=== PATIENT | male | born 1935 | race Caucasian/White ===

== ENCOUNTER 2019-05-18 10:02 | Outpatient (CLI) | payer MEDICARE ==
--- NOTE | 2019-05-18 10:29 | RAD ---
XR Chest Pa Lat STANDARD HISTORY: Hyponatremia, leukocytosis. COMPARISON: None FINDINGS: There are changes of median sternotomy. The heart size is normal. The lungs are well expand ed without focal areas of consolidation, pneumothorax or pleural effusions. Degenerative changes present in the spine IMPRESSION: No radiographic evidence of acute cardiopulmonary process.
== END 2019-05-18 10:03 | disposition home or self-care (01) ==
LOC: BICRAD 10:02
PROVIDERS: ATTEND Family Medicine
DX: E87.1 Hypo-osmolality and hyponatremia (principal); D72.829 Elevated white blood cell count, unspecified
CPT/HCPCS: 71046

== ENCOUNTER 2021-05-30 11:03 | Inpatient (IN) | payer MEDICARE ==
[2021-05-30 11:43] LABS: #Neutrophils 10.7 thou/uL (1.40-6.50); %Basophils 0.2 % (0.0-1.0); %Eosinophils 0.1 % (0.0-10.0); %Lymphocytes 7.6 % (21.0-51.0); %Monocytes 8.1 % (0.0-10.0); %Neutrophils 84.1 % (42.0-75.0); Hemoglobin 13.3 g/dL (14.0-18.0); Mean Corpuscular HGB CONC 33.9 g/dL (32.0-36.0); Mean Corpuscular Hemoglobin 31.7 pg (27.0-31.0); Mean Corpuscular Volume 93.7 fL (78.0-98.0); Mean Platelet Volume 7.3 fL (7.4-10.4); Platelet Count 201 thou/uL (130-400); White Blood Cell (WBC) Count 12.8 thou/uL (4.8-10.8)
[2021-05-30 12:16] LABS: ALT (SGPT) 19 U/L (8-55); AST (SGOT) 28 U/L (5-34); Albumin 3.9 g/dL (3.4-4.8); Alkaline Phosphatase 74 U/L (40-110); Anion Gap 10 mmol/L (10-20); BUN (Urea Nitrogen) 12 mg/dL (8.4-25.7); Bilirubin, Total 0.7 mg/dL (0.2-1.2); Calc. Creatinine Clearance 0 mL/min (70-130); Calcium 8.7 mg/dL (7.8-10.44); Carbon Dioxide 24 mmol/L (23-31); Chloride 94 mmol/L (98-107); Globulin 2.1 g/dL (2.4-3.5); Glucose 147 mg/dL (83-110); Potassium 4.2 mmol/L (3.5-5.1); Sodium 124 mmol/L (136-145)
[2021-05-30 12:44] LABS: CKMB 0.9 ng/mL (0-6.6)
[2021-05-30] MEDS ORDERED: Acetaminophen 500 MG TAB ONE (13:04)
[2021-05-30 13:38] LABS: Bacteria/HPF 3+ HPF (None Seen); Bilirubin Negative (Negative); Blood, Urine Negative (Negative); Clarity Turbid (Clear); Glucose, Urine (Dipstick) Normal (Negative); Ketone, Urine Negative (Negative); Leukocyte 500 Leu/uL (Negative); Nitrite Negative (Negative); Protein, Urine (Dipstick) 200 mg/dL (Neg-Trace); Specific Gravity, Urine 1.013 (1.002-1.036); Squamous Epithelial 0-3 HPF (0-3); Urobilinogen Normal mg/dL (Less than 2); WBC/HPF 21-50 HPF (0-3); pH, Urine 6.5 (5.0-9.0)
[2021-05-30] MEDS ORDERED: Aspirin Chewable 81 MG TAB ONE (13:45)
[2021-05-30] MEDS ORDERED: cefTRIAXone\\ROCEPHIN 1 GM VIAL ONE (13:55)
[2021-05-30 14:45] LABS: Lactic Acid 0.7 mmol/L (0.5-2.2)
[2021-05-30 16:09] LABS: Troponin I 0.088 ng/mL (< 0.028)
[2021-05-30] MEDS ORDERED: Ondansetron PF 4 MG/2 ML Vial IVP PRN (17:39)
[2021-05-30] MEDS ORDERED: Nitroglycerin 0.4 MG TAB (25 Tab Bottle) SL PRN (17:43)
[2021-05-30 19:00] LABS: Troponin I 0.058 ng/mL (< 0.028)
[2021-05-30 19:03] LABS: Anion Gap 10 mmol/L (10-20); BUN (Urea Nitrogen) 12 mg/dL (8.4-25.7); Calc. Creatinine Clearance 0 mL/min (70-130); Calcium 8.1 mg/dL (7.8-10.44); Carbon Dioxide 24 mmol/L (23-31); Chloride 94 mmol/L (98-107); Glucose 147 mg/dL (83-110); Potassium 3.2 mmol/L (3.5-5.1); Sodium 125 mmol/L (136-145)
[2021-05-30] MEDS ORDERED: Furosemide 40 MG/4 ML VIAL SLOW IVP SCH ×2 (20:00→23:00)
[2021-05-30] MEDS: Atorvastatin Calcium 40 MG TAB PO SCH (22:58)
[2021-05-31 00:20] LABS: Creatinine, Urine 34.22 mg/dL (63-166)
[2021-05-31] MEDS: Calcium Carbonate 500 MG ChewTAB PO PRN (01:27)
[2021-05-31 03:57] VITALS: BMI 27.7
[2021-05-31 04:38] LABS: #Monocytes 0.8 thou/uL (0.11-0.59); #Neutrophils 6.3 thou/uL (1.40-6.50); %Eosinophils 0.2 % (0.0-10.0); %Monocytes 8.5 % (0.0-10.0); %Neutrophils 69.3 % (42.0-75.0); Hemoglobin 13.3 g/dL (14.0-18.0); Mean Corpuscular HGB CONC 34.2 g/dL (32.0-36.0); Mean Corpuscular Hemoglobin 31.9 pg (27.0-31.0); Mean Corpuscular Volume 93.3 fL (78.0-98.0); Mean Platelet Volume 6.9 fL (7.4-10.4); Platelet Count 162 thou/uL (130-400); RBC Distribution Width 11.8 % (11.5-14.5); Red Blood Cell (RBC) Count 4.16 mill/uL (4.70-6.10); White Blood Cell (WBC) Count 9.1 thou/uL (4.8-10.8)
[2021-05-31 04:46] LABS: Hemoglobin A1c 5.1 % (4.0-6.0)
[2021-05-31 04:58] LABS: Anion Gap 11 mmol/L (10-20); BUN (Urea Nitrogen) 11 mg/dL (8.4-25.7); Calc. Creatinine Clearance 74 mL/min (70-130); Calcium 8.4 mg/dL (7.8-10.44); Carbon Dioxide 24 mmol/L (23-31); Chloride 94 mmol/L (98-107); Glucose 97 mg/dL (83-110); Potassium 3.3 mmol/L (3.5-5.1); Sodium 126 mmol/L (136-145)
[2021-05-31] MEDS ORDERED: Enoxaparin Sodium 40 MG/0.4 ML SYRINGE SC SCH (09:00)
[2021-05-31] MEDS ORDERED: Aspirin Chewable 81 MG TAB PO SCH (09:00)
[2021-05-31] MEDS ORDERED: Metoprolol Tartrate 50 MG TAB PO SCH (09:00)
[2021-05-31 09:10] LABS: Sodium 128 mmol/L (136-145)
[2021-05-31] MEDS: Polyethylene Glycol 3350 17 GM Packet PO SCH (09:44)
[2021-05-31] MEDS: Aspirin 325 mg Enteric Coated Tablet PO SCH (09:44)
[2021-05-31] MEDS: Multivitamin W/ Minerals 1 TAB PO SCH (09:44)
[2021-05-31] MEDS: Tamsulosin HCl 0.4 MG CAP PO SCH (09:44)
[2021-05-31 13:14] LABS: SARS-CoV-2 PCR by NAA DETECTED (NotDetected)
[2021-05-31] MEDS ORDERED: Vancomycin 1 GM in Premix Bag 1 BAG IVPB SCH (14:00)
[2021-05-31] MEDS: cefTRIAXone\\ROCEPHIN 1 GM in Sodium Chloride 0.9% 100 ML IVPB SCH (14:39)
[2021-05-31] MEDS: Sodium Chloride 0.9% 10 ML ONE ×2 (14:39→21:35)
[2021-05-31] MEDS ORDERED: Docusate 100 MG CAP PO PRN (15:08)
[2021-05-31] MEDS ORDERED: cloNIDine 0.1 MG TAB PO PRN (15:08)
[2021-05-31] MEDS ORDERED: Ascorbic Acid 500 mg Chewable Tablet PO SCH (18:00)
[2021-05-31] MEDS ORDERED: Albuterol Sulfate 2.5 mg/3 ml Neb NEB SCH (19:00)
[2021-05-31] MEDS ORDERED: CLINDAMYCIN 1% TOP SCH (21:00)
[2021-05-31] MEDS ORDERED: Cholecalciferol 1,000 UNITS (25 MCG) TAB PO SCH (21:00)
[2021-05-31] MEDS: Albuterol 200 PUFF (6.7GM INHALER) INH SCH ×2 (21:34)
[2021-05-31] MEDS: Atorvastatin Calcium 40 MG TAB PO SCH (21:35)
[2021-05-31] MEDS: Enoxaparin Sodium 40 MG/0.4 ML SYRINGE SC SCH (21:35)
[2021-05-31] MEDS: Metoprolol Tartrate 50 MG TAB PO SCH (21:36)
[2021-05-31] MEDS: Amlodipine 5 MG TAB PO SCH (21:36)
[2021-05-31] MEDS: Acetaminophen 325 MG TAB PO PRN (21:36)
[2021-05-31 21:56] LABS: Sodium 125 mmol/L (136-145)
[2021-06-01 05:49] LABS: Band 7 % (5-11); Hemoglobin 12.7 g/dL (14.0-18.0); Hypochromia SLIGHT = 6-15 cells (100X) (0-5/hpf); Lymphocytes 29 % (21-51); MDiff Complete? YES; Mean Corpuscular HGB CONC 34.5 g/dL (32.0-36.0); Mean Corpuscular Hemoglobin 31.7 pg (27.0-31.0); Mean Platelet Volume 7.3 fL (7.4-10.4); Monocytes 7 % (0-10); Neutrophil 49 % (42-75); Platelet Count 141 thou/uL (130-400); Platelet Morphology Comment Appears Adequate; RBC Distribution Width 11.8 % (11.5-14.5); Reactive Lymphocytes 8 % (0-10); Red Blood Cell (RBC) Count 3.99 mill/uL (4.70-6.10); White Blood Cell (WBC) Count 6.3 thou/uL (4.8-10.8)
[2021-06-01 05:52] LABS: Anion Gap 11 mmol/L (10-20); BUN (Urea Nitrogen) 9 mg/dL (8.4-25.7); Calc. Creatinine Clearance 66 mL/min (70-130); Carbon Dioxide 25 mmol/L (23-31); Chloride 92 mmol/L (98-107); Glucose 97 mg/dL (83-110); Magnesium 1.9 mg/dL (1.6-2.6); Potassium 3.7 mmol/L (3.5-5.1); Sodium 124 mmol/L (136-145)
[2021-06-01] MEDS: Albuterol 200 PUFF (6.7GM INHALER) INH SCH ×3 (06:09→19:30)
[2021-06-01] MEDS: Ascorbic Acid 500 mg Chewable Tablet PO SCH (07:53)
[2021-06-01] MEDS: Aspirin 325 mg Enteric Coated Tablet PO SCH (07:54)
[2021-06-01] MEDS: Cholecalciferol 1,000 UNITS (25 MCG) TAB PO SCH (07:54)
[2021-06-01] MEDS: Enoxaparin Sodium 40 MG/0.4 ML SYRINGE SC SCH ×2 (07:55→20:23)
[2021-06-01] MEDS: Metoprolol Tartrate 50 MG TAB PO SCH ×3 (07:56→20:23)
[2021-06-01] MEDS: Multivitamin W/ Minerals 1 TAB PO SCH (07:57)
[2021-06-01] MEDS: Polyethylene Glycol 3350 17 GM Packet PO SCH (07:57)
[2021-06-01] MEDS: Zinc Sulfate 220 MG CAP PO SCH (07:58)
[2021-06-01] MEDS: Tamsulosin HCl 0.4 MG CAP PO SCH (07:58)
[2021-06-01] MEDS: Fluticasone Propionate Nasal Spray 16 gm Bottle NASAL SCH (08:35)
[2021-06-01 10:33] LABS: Sodium 125 mmol/L (136-145)
[2021-06-01] MEDS ORDERED: cefTRIAXone\\ROCEPHIN 1 GM in Sodium Chloride 0.9% 100 ML IVPB SCH (15:15)
[2021-06-01] MEDS: Vancomycin 1 GM in Premix Bag 1 BAG IVPB SCH (16:24)
[2021-06-01] MEDS: cefTRIAXone\\ROCEPHIN 1 GM in Sodium Chloride 0.9% 100 ML IVPB SCH (18:36)
[2021-06-01] MEDS: Atorvastatin Calcium 40 MG TAB PO SCH (20:23)
[2021-06-01] MEDS: Amlodipine 5 MG TAB PO SCH (20:23)
[2021-06-01] MEDS: Acetaminophen 325 MG TAB PO PRN (20:24)
[2021-06-01 22:37] LABS: Sodium 124 mmol/L (136-145)
[2021-06-02] MEDS: Albuterol 200 PUFF (6.7GM INHALER) INH SCH ×4 (01:47→19:48)
[2021-06-02] MEDS: Vancomycin 1 GM in Premix Bag 1 BAG IVPB SCH (03:41)
[2021-06-02] MEDS: Acetaminophen 325 MG TAB PO PRN ×3 (03:54→21:53)
[2021-06-02 05:44] LABS: Anion Gap 9 mmol/L (10-20); BUN (Urea Nitrogen) 9 mg/dL (8.4-25.7); Calc. Creatinine Clearance 77 mL/min (70-130); Calcium 7.8 mg/dL (7.8-10.44); Carbon Dioxide 25 mmol/L (23-31); Chloride 92 mmol/L (98-107); Glucose 116 mg/dL (83-110); Sodium 123 mmol/L (136-145)
[2021-06-02 05:52] LABS: Potassium 2.9 mmol/L (3.5-5.1)
[2021-06-02] MEDS ORDERED: Electrolyte Replacement Protocol 1 EACH FS PRN (06:00)
[2021-06-02 06:20] LABS: Magnesium 1.8 mg/dL (1.6-2.6)
[2021-06-02] MEDS: Potassium Chloride 20 MEQ in Premix Bag 1 BAG IVPB SCH ×5 (06:24→14:18)
[2021-06-02] MEDS ORDERED: Magnesium 2 GM/50 ML 2 GM in Premix Bag 1 BAG IVPB SCH (06:30)
[2021-06-02] MEDS: Ascorbic Acid 500 mg Chewable Tablet PO SCH (08:46)
[2021-06-02] MEDS: Cholecalciferol 1,000 UNITS (25 MCG) TAB PO SCH (08:47)
[2021-06-02] MEDS: Aspirin 325 mg Enteric Coated Tablet PO SCH (08:47)
[2021-06-02] MEDS: Enoxaparin Sodium 40 MG/0.4 ML SYRINGE SC SCH ×2 (08:48→19:48)
[2021-06-02] MEDS: Fluticasone Propionate Nasal Spray 16 gm Bottle NASAL SCH (08:48)
[2021-06-02] MEDS: Metoprolol Tartrate 50 MG TAB PO SCH ×3 (08:49→19:48)
[2021-06-02] MEDS: Polyethylene Glycol 3350 17 GM Packet PO SCH (08:49)
[2021-06-02] MEDS: Multivitamin W/ Minerals 1 TAB PO SCH (08:49)
[2021-06-02] MEDS: Tamsulosin HCl 0.4 MG CAP PO SCH (08:50)
[2021-06-02] MEDS: Zinc Sulfate 220 MG CAP PO SCH (08:50)
[2021-06-02] MEDS: Amiodarone 450 MG in Dextrose 5% in Water 250 ML IVPB SCH ×3 (12:19→22:25)
[2021-06-02] MEDS ORDERED: cefTRIAXone\\ROCEPHIN 2 GM in Sodium Chloride 0.9% 100 ML IVPB SCH (14:00)
[2021-06-02 16:36] LABS: Anion Gap 10 mmol/L (10-20); BUN (Urea Nitrogen) 13 mg/dL (8.4-25.7); Calc. Creatinine Clearance 64 mL/min (70-130); Carbon Dioxide 23 mmol/L (23-31); Chloride 93 mmol/L (98-107); Glucose 130 mg/dL (83-110); Magnesium 2.3 mg/dL (1.6-2.6); Potassium 3.7 mmol/L (3.5-5.1); Sodium 122 mmol/L (136-145)
[2021-06-02] MEDS: Amlodipine 5 MG TAB PO SCH (19:47)
[2021-06-02] MEDS: Atorvastatin Calcium 40 MG TAB PO SCH (19:47)
[2021-06-02] MEDS: Amoxicillin/Potassium Clav 875 MG TAB PO SCH (19:47)
[2021-06-02 22:33] LABS: Anion Gap 10 mmol/L (10-20); BUN (Urea Nitrogen) 12 mg/dL (8.4-25.7); Calc. Creatinine Clearance 66 mL/min (70-130); Calcium 8.3 mg/dL (7.8-10.44); Carbon Dioxide 26 mmol/L (23-31); Chloride 94 mmol/L (98-107); Glucose 107 mg/dL (83-110); Sodium 126 mmol/L (136-145)
[2021-06-03] MEDS: Albuterol 200 PUFF (6.7GM INHALER) INH SCH ×4 (00:51→17:44)
[2021-06-03 05:52] LABS: Anion Gap 8 mmol/L (10-20); BUN (Urea Nitrogen) 10 mg/dL (8.4-25.7); Calc. Creatinine Clearance 68 mL/min (70-130); Calcium 7.9 mg/dL (7.8-10.44); Carbon Dioxide 26 mmol/L (23-31); Chloride 94 mmol/L (98-107); Glucose 104 mg/dL (83-110); Magnesium 2.2 mg/dL (1.6-2.6); Potassium 3.4 mmol/L (3.5-5.1); Sodium 125 mmol/L (136-145)
[2021-06-03] MEDS: Acetaminophen 325 MG TAB PO PRN ×2 (06:04→21:36)
[2021-06-03] MEDS ORDERED: Potassium Chloride 20 MEQ TAB PO SCH (06:30)
[2021-06-03] MEDS: Ascorbic Acid 500 mg Chewable Tablet PO SCH (08:35)
[2021-06-03] MEDS: Enoxaparin Sodium 40 MG/0.4 ML SYRINGE SC SCH ×2 (08:36→21:37)
[2021-06-03] MEDS: Amoxicillin/Potassium Clav 875 MG TAB PO SCH ×2 (08:36→21:36)
[2021-06-03] MEDS: Metoprolol Tartrate 50 MG TAB PO SCH ×3 (08:36→21:36)
[2021-06-03] MEDS: Multivitamin W/ Minerals 1 TAB PO SCH (08:36)
[2021-06-03] MEDS: Zinc Sulfate 220 MG CAP PO SCH (08:36)
[2021-06-03] MEDS: Cholecalciferol 1,000 UNITS (25 MCG) TAB PO SCH (08:36)
[2021-06-03] MEDS: Aspirin 325 mg Enteric Coated Tablet PO SCH (08:36)
[2021-06-03] MEDS: Tamsulosin HCl 0.4 MG CAP PO SCH (08:36)
[2021-06-03] MEDS: Polyethylene Glycol 3350 17 GM Packet PO SCH (08:37)
[2021-06-03] MEDS: Fluticasone Propionate Nasal Spray 16 gm Bottle NASAL SCH ×2 (08:38→17:45)
[2021-06-03] MEDS: Amiodarone 200 MG TAB PO SCH ×2 (15:10→21:36)
[2021-06-03] MEDS: Amiodarone 450 MG in Dextrose 5% in Water 250 ML IVPB SCH (15:11)
[2021-06-03] MEDS: Calcium Carbonate 500 MG ChewTAB PO PRN (17:44)
[2021-06-03] MEDS ORDERED: Fluticasone Propionate Nasal Spray 16 gm Bottle NASAL SCH (21:00)
[2021-06-03] MEDS: Atorvastatin Calcium 40 MG TAB PO SCH (21:36)
[2021-06-03] MEDS: Amlodipine 5 MG TAB PO SCH (21:36)
[2021-06-04] MEDS: Albuterol 200 PUFF (6.7GM INHALER) INH SCH ×3 (01:38→12:57)
[2021-06-04 05:37] LABS: #Lymphocytes 1.4 thou/uL (1.20-3.40); #Monocytes 0.6 thou/uL (0.11-0.59); #Neutrophils 2.9 thou/uL (1.40-6.50); %Basophils 0.3 % (0.0-1.0); %Eosinophils 0.2 % (0.0-10.0); %Lymphocytes 28.5 % (21.0-51.0); %Monocytes 11.4 % (0.0-10.0); %Neutrophils 59.7 % (42.0-75.0); Hemoglobin 11.4 g/dL (14.0-18.0); Mean Corpuscular HGB CONC 34.7 g/dL (32.0-36.0); Mean Corpuscular Volume 92.1 fL (78.0-98.0); Mean Platelet Volume 7.4 fL (7.4-10.4); Platelet Count 159 thou/uL (130-400); RBC Distribution Width 11.8 % (11.5-14.5); Red Blood Cell (RBC) Count 3.57 mill/uL (4.70-6.10); White Blood Cell (WBC) Count 4.9 thou/uL (4.8-10.8)
[2021-06-04 05:57] LABS: Anion Gap 10 mmol/L (10-20); BUN (Urea Nitrogen) 11 mg/dL (8.4-25.7); Calc. Creatinine Clearance 61 mL/min (70-130); Carbon Dioxide 21 mmol/L (23-31); Chloride 98 mmol/L (98-107); Glucose 101 mg/dL (83-110); Magnesium 2.1 mg/dL (1.6-2.6); Potassium 3.3 mmol/L (3.5-5.1); Sodium 126 mmol/L (136-145)
[2021-06-04] MEDS: Amoxicillin/Potassium Clav 875 MG TAB PO SCH (09:21)
[2021-06-04] MEDS: Enoxaparin Sodium 40 MG/0.4 ML SYRINGE SC SCH (09:21)
[2021-06-04] MEDS: Aspirin 325 mg Enteric Coated Tablet PO SCH (09:21)
[2021-06-04] MEDS: Metoprolol Tartrate 50 MG TAB PO SCH ×2 (09:22→16:06)
[2021-06-04] MEDS: Ascorbic Acid 500 mg Chewable Tablet PO SCH (09:22)
[2021-06-04] MEDS: Zinc Sulfate 220 MG CAP PO SCH (09:22)
[2021-06-04] MEDS: Tamsulosin HCl 0.4 MG CAP PO SCH (09:22)
[2021-06-04] MEDS: Multivitamin W/ Minerals 1 TAB PO SCH (09:22)
[2021-06-04] MEDS: Polyethylene Glycol 3350 17 GM Packet PO SCH (09:22)
[2021-06-04] MEDS: Cholecalciferol 1,000 UNITS (25 MCG) TAB PO SCH (09:22)
[2021-06-04] MEDS: Amiodarone 200 MG TAB PO SCH ×2 (09:22→16:06)
[2021-06-04 12:55] VITALS: BP 153/74; TEMP 100
[2021-06-04 13:39] LABS: Anion Gap 12 mmol/L (10-20); BUN (Urea Nitrogen) 11 mg/dL (8.4-25.7); Calc. Creatinine Clearance 57 mL/min (70-130); Carbon Dioxide 23 mmol/L (23-31); Chloride 98 mmol/L (98-107); Potassium 3.5 mmol/L (3.5-5.1); Sodium 129 mmol/L (136-145)
[2021-06-04 13:40] LABS: Calcium 8.4 mg/dL (7.8-10.44); Glucose 133 mg/dL (83-110)
[2021-06-04] MEDS ORDERED: Potassium Chloride 20 MEQ TAB PO SCH (13:45)
[2021-06-04] MEDS ORDERED: Apixaban 5 MG TAB PO SCH ×2 (21:00)
== END 2021-06-04 16:54 | disposition home or self-care (01) | DRG 698 ==
LOC: ERS 11:03 → ERHOLD 15:05 → 2NO 20:38 → 2SW 05-31 20:08
PROVIDERS: ADMIT Internal Medicine; ATTEND Internal Medicine
PROC: 8E0ZXY6 Isolation (ICD-10-PCS; principal; 2021-05-30)
DX: T83.518A Infection and inflammatory reaction due to other urinary catheter, initial encounter (principal); U07.1 COVID-19; G93.41 Metabolic encephalopathy; I21.A1 Myocardial infarction type 2; I50.33 Acute on chronic diastolic (congestive) heart failure; N39.0 Urinary tract infection, site not specified; I13.0 Hypertensive heart and chronic kidney disease with heart failure and stage 1 through stage 4 chronic kidney disease, or unspecified chronic kidney disease; E87.1 Hypo-osmolality and hyponatremia; I47.1 Supraventricular tachycardia; Z66 Do not resuscitate; I48.91 Unspecified atrial fibrillation; Y84.6 Urinary catheterization as the cause of abnormal reaction of the patient, or of later complication, without mention of misadventure at the time of the procedure; B96.5 Pseudomonas (aeruginosa) (mallei) (pseudomallei) as the cause of diseases classified elsewhere; N40.0 Benign prostatic hyperplasia without lower urinary tract symptoms; F03.90 Unspecified dementia, unspecified severity, without behavioral disturbance, psychotic disturbance, mood disturbance, and anxiety; E78.5 Hyperlipidemia, unspecified; I25.10 Atherosclerotic heart disease of native coronary artery without angina pectoris; F17.290 Nicotine dependence, other tobacco product, uncomplicated; N40.1 Benign prostatic hyperplasia with lower urinary tract symptoms; R33.8 Other retention of urine; J44.9 Chronic obstructive pulmonary disease, unspecified; H35.3290 Exudative age-related macular degeneration, unspecified eye, stage unspecified; N18.2 Chronic kidney disease, stage 2 (mild); I49.3 Ventricular premature depolarization; E87.6 Hypokalemia; E83.42 Hypomagnesemia; Z79.899 Other long term (current) drug therapy; Z79.82 Long term (current) use of aspirin; Z95.1 Presence of aortocoronary bypass graft; Z98.890 Other specified postprocedural states; Z82.49 Family history of ischemic heart disease and other diseases of the circulatory system; Z83.3 Family history of diabetes mellitus
CPT/HCPCS: 36415; 71045; 80048; 80053; 81003; 81015; 82533; 82553; 82570; 83036; 83605; 83735; 83880; 83930; 83935; 84295; 84300; 84443; 84484; 84540; 84560; 85025; 85379; 87040; 87086; 87149; 93005; 96365; 96366; J0282; J0696; J1650; J1940; J3370; J3475; J3480; J3490; J7070; U0003; U0005

== ENCOUNTER 2022-01-19 15:52 | Outpatient (CLI) | payer MEDICARE | END 2022-01-19 15:53 | disposition home or self-care (01) | LOC: BICRAD 15:52 | PROVIDERS: ATTEND Family Medicine | DX: J18.9 Pneumonia, unspecified organism (principal); R91.8 Other nonspecific abnormal finding of lung field | CPT/HCPCS: 71046 ==